=== PATIENT | female | born 1965 | race Two or more races ===

== ENCOUNTER 2017-03-30 14:36 | Emergency (ER) | payer OTHER ==
[~2017-03-30] VITALS: Ht 160 cm; Wt 62.0 kg
[2017-03-30 14:38] VITALS: BP 176/88
[2017-03-30] MEDS ORDERED: TETANUS, DIPHTHERIA, PERTUSSIS VAC/PF 0.5ML (>7YR OLD) IM ONE (15:15)
[2017-03-30] MEDS ORDERED: BACITRACIN ZINC OINT UDPKT TOP ONE (15:15)
[2017-03-30] MEDS ORDERED: LIDOCAINE HCL 1% 20ML VIAL (Pyxis) INJ INFIL ONE (15:15)
== END 2017-03-30 17:12 | disposition home or self-care (01) ==
LOC: ER 14:48
DX: S61.210A Laceration without foreign body of right index finger without damage to nail, initial encounter (principal); Z98.51 Tubal ligation status; W26.0XXA Contact with knife, initial encounter; Y93.89 Activity, other specified; Y92.89 Other specified places as the place of occurrence of the external cause; Y99.8 Other external cause status
CPT/HCPCS: 12001; 90471; 90715; 99283; J3490; X7700; Z7610

== ENCOUNTER 2019-03-07 20:31 | Emergency (ER) | payer OTHER ==
[~2019-03-07] VITALS: Ht 162.6 cm; Wt 69.0 kg
[2019-03-08] MEDS: HYDROCODONE/ACETAMINOPHEN 5/325MG TABLET PO ONE (01:33)
[2019-03-08 01:34] VITALS: BP 159/87
== END 2019-03-08 01:34 | disposition home or self-care (01) ==
LOC: ER 20:31
DX: S82.832A Other fracture of upper and lower end of left fibula, initial encounter for closed fracture (principal); W50.2XXA Accidental twist by another person, initial encounter; Y93.89 Activity, other specified; Y92.89 Other specified places as the place of occurrence of the external cause; Y99.8 Other external cause status; F17.200 Nicotine dependence, unspecified, uncomplicated; I10 Essential (primary) hypertension; Z98.51 Tubal ligation status
CPT/HCPCS: 73610; 99283